=== PATIENT | male | born 1980 | race Caucasian/White ===

== ENCOUNTER 2021-03-18 18:38 | Outpatient (REF) | payer MEDICAID, SELFPAY ==
[2021-03-18 21:23] LABS: HCT 40.5 % (40.0-50.0); HGB 13.3 g/dL (13.5-17.5); MCH 29.8 pg (27.0-33.0); MCHC 32.8 % (32.0-36.0); MCV 90.6 fL (80-95); MPV 12.4 fL (8.0-11.0); Platelet Count 120 10^3/uL (130-400); RBC 4.47 10^6/uL (4.36-5.78); RDW 12.5 % (11.8-14.1); RDW-SD 41.2 fL; WBC 5.49 10^3/uL (4.4-10.8)
[2021-03-18 21:48] LABS: TSH (W/Ref FT4) 0.72 uIU/mL (0.36-3.74)
== END 2021-03-18 18:39 | disposition home or self-care (01) ==
LOC: NCHCN 18:38
PROVIDERS: PCP Registered Nurse; Visit Provider Registered Nurse
DX: R53.83 Other fatigue (principal)
CPT/HCPCS: 85027; 84443

== ENCOUNTER 2021-04-10 08:53 | Outpatient (REF) | payer MEDICAID, SELFPAY ==
[2021-04-10 14:25] LABS: Abs Immature Grans 0.01 10^3/uL (0.0-0.06); Absolute Basophil Count 0.02 10^3/uL (0.0-0.2); Absolute Eosinophil Count 0.15 10^3/uL (0.0-0.7); Absolute Monocyte Count 0.44 10^3/uL (0.1-0.8); Absolute Neutrophil Count 2.19 10^3/uL (1.2-6.7); Basophils % 0.5; Eosinophils % 3.5; HCT 42.3 % (40.0-50.0); HGB 13.6 g/dL (13.5-17.5); Immature Grans % 0.2; Lymphocytes % 34.8; MCH 29.6 pg (27.0-33.0); MCHC 32.2 % (32.0-36.0); MCV 92.2 fL (80-95); MPV 12.6 fL (8.0-11.0); Monocytes % 10.2; Neutrophils % 50.8; Nucleated RBC 0 %; Platelet Count 115 10^3/uL (130-400); RBC 4.59 10^6/uL (4.36-5.78); RDW 12.4 % (11.8-14.1); RDW-SD 42.5 fL; Reticulocyte 0.8 % (0.5-2.4); WBC 4.31 10^3/uL (4.4-10.8)
[2021-04-10 14:49] LABS: ALT 33 U/L (16-63); AST 16 U/L (15-37); Albumin 3.9 g/dL (3.4-5.0); Alkaline Phosphatase 60 U/L (46-116); Anion Gap 6.9 mmol/L (3-11); BUN 17 mg/dL (7-18); Bilirubin, Total 0.4 mg/dL (0.2-1.0); CO2 29.1 mmol/L (21.0-32.0); CREATININE 0.9 mg/dL (0.70-1.30); Calcium 8.9 mg/dL (8.5-10.1); Chloride 108 mmol/L (98-107); Glucose 52 mg/dL (74-106); Potassium 4.1 mmol/L (3.5-5.1); Sodium 144 mmol/L (136-145); Total Protein 6.7 g/dL (6.4-8.2)
== END 2021-04-10 08:54 | disposition home or self-care (01) ==
LOC: NCHCN 08:53
PROVIDERS: PCP Registered Nurse; Visit Provider Registered Nurse
DX: D64.9 Anemia, unspecified (principal)
CPT/HCPCS: 80053; 85025; 85045

== ENCOUNTER 2022-02-19 09:31 | Outpatient (REF) | payer MEDICAID, SELFPAY ==
[2022-02-19 14:14] LABS: Absolute Basophil Count 0.03 10^3/uL (0.0-0.2); Absolute Eosinophil Count 0.11 10^3/uL (0.0-0.7); Absolute Lymphocyte Count 1.26 10^3/uL (1.2-3.4); Absolute Monocyte Count 0.45 10^3/uL (0.1-0.8); Absolute Neutrophil Count 2.55 10^3/uL (1.2-6.7); Basophils % 0.7; Eosinophils % 2.5; HCT 45.8 % (40.0-50.0); HGB 14.7 g/dL (13.5-17.5); Lymphocytes % 28.6; MCH 29.8 pg (27.0-33.0); MCHC 32.1 % (32.0-36.0); MCV 93 fL (80-95); MPV 12.9 fL (8.0-11.0); Monocytes % 10.2; Platelet Count 153 10^3/uL (130-400); RBC 4.93 10^6/uL (4.36-5.78); RDW 12.7 % (11.8-14.1); RDW-SD 43.4 fL
[2022-02-19 15:00] LABS: Ferritin 84 ng/mL (26-388); TSH 1.02 uIU/mL (0.36-3.74); Vitamin B12 432 pg/mL (193-986)
== END 2022-02-19 09:32 | disposition home or self-care (01) ==
LOC: NCHCN 09:31
PROVIDERS: PCP Registered Nurse; Visit Provider Registered Nurse
DX: R53.83 Other fatigue (principal); E53.8 Deficiency of other specified B group vitamins; G47.61 Periodic limb movement disorder; Z86.2 Personal history of diseases of the blood and blood-forming organs and certain disorders involving the immune mechanism
CPT/HCPCS: 82607; 82728; 84443; 85025

== ENCOUNTER 2022-08-04 16:15 | Outpatient (REF) | payer MEDICAID, SELFPAY ==
[2022-08-05 22:33] LABS: Campylobacter PCR Negative (Negative); Salmonella PCR Negative (Negative); Shiga Toxin PCR Negative (Negative); Shigella/Enteroinvasive Ecoli Negative (Negative)
== END 2022-08-04 16:16 | disposition home or self-care (01) ==
LOC: NCHCN 16:15
PROVIDERS: PCP Registered Nurse; Visit Provider Family Medicine
DX: R19.7 Diarrhea, unspecified (principal)
CPT/HCPCS: 87329; 87505; 87177

== ENCOUNTER 2023-08-17 09:19 | Outpatient (REF) | payer BC, SELFPAY ==
--- OUTSIDE RECORDS SUMMARY | 2023-08-17 09:20 | XMS_ITS | CCD ---
Author Name Unknown Address [address] [place] [address] [phone] Organization Unknown Address [address] [place] [address] [phone] Care Team Providers Care Machine Captain Name Role Phone MARY AZEVEDO Attending Physician [phone] KATE LAYNE Er Physician [phone] LINDSEY Strong Registered Nurse [phone] Vital Signs Vital Sign Value Unit Date/Time Recent/Initial ? BMI (Body Mass Index) 22.53 kg/m^2 02/20/2023 20: 24 Initial VS Weight Measured 190 lbs 02/20/2023 20:24 Ini tial VS Height 77 in 02/20/2023 20:24 Initial VS BSA (Body Surface Area) 2.16 m^2 02/20/2023 2 0:24 Initial VS BP Systolic 135 mmHg 02/20/2023 20:24 Initial VS BP Diastolic 96 mmHg 02/20/2023 20:24 Initia l VS Respiratory Rate 16 bpm 02/20/2023 20:24 In itial VS Heart Rate 71 bpm 02/20/2023 20:24 Initial VS O2 % BldC Oximetry 99 % 02/20/2023 20:24 Initial VS Body Temperature 37 degrees 02/20/2023 20:24 In itial VS BP Systolic 132 mmHg 02/20/2023 22:01 Most Re cent VS BP Diastolic 87 mmHg 02/20/2023 22:01 Most R ecent VS Respiratory Rate 16 bpm 02/20/2023 22:[address] Recent VS Heart Rate 61 bpm 02/20/2023 22:01 Most Rec ent VS O2 % BldC Oximetry 96 % 02/20/2023 22:01 Most Recent VS Allergies Allergy Code Allergy Type Reaction Status No Known Drug Allergies 0 No known drug allergies Active Procedures Unknown or Not Available. History of Immunizations Immunization Code Date Tdap 115 02/20/2023 Problems Unknown or Not Available. Results Unknown or Not Available. Active Medications Medications Administered During Visit Medication Dose Units Frequency Route Date/Time of Last Dose TETANUS/DIPHT/PERTUS SYR:0.5ML(BOOSTRIX) 0.5 ML X1 IM 02/21/20 23 20:56 Encounters Encounter Diagnosis Diagnosis Code Start Date Laceration without foreign body of scalp, initia l encounter [id number] 02/20/2023 Social History Smoking Status Code Start Date End Date Never smoker [id number] Patient Decision Aids Unknown or Not Available. Discharge Instructions You were admitted to [facility] on 02/20/2023 20:02 with a principal diagnosis of Laceration without foreign body of scalp, initial encounter You were discharged from [facility] on 02/20/2023 22:05 Should you have any questions prior to discharge, please contact a member of your healthcare team. If you have left the hospital and have any questions, please contact your primary care physician. Chief Complaint and Reason For Visit Chief Complaint Date of Onset HEAD INJURY Function Status Unknown or Not Available. Plan of Care Unknown or Not Available. Referral/Transition of Care Unknown or Not Available.
--- OUTSIDE RECORDS SUMMARY | 2023-08-17 09:21 | XMS_ITS | CCD ---
Author Name Unknown Address [address] [place] [address] [phone] Organization Unknown Address [address] [place] [address] [phone] Care Team Providers Care Cigar Maker Name Role Phone MERLYN MORIN Attending Physician [phone] MERLYN MORIN Rounding (Secondary) Physician [phone] Vital Signs Unknown or Not Available. Allergies Allergy Code Allergy Type Reaction Status No Known Drug Allergies 0 No known drug allergies Active Procedures Unknown or Not Available. History of Immunizations Immunization Code Date Tdap 115 02/20/2023 Problems Unknown or Not Available. Results Unknown or Not Available. Active Medications Medication Code Dose Units Frequency Route Modificatio n Start Date/Time PATIENT OR PATIENT'S FAMILY DENIES 0 1 DAILY ORAL 04/23/2019 11:06 Prescription Detail TAKE 1 ORAL DAILY Medications Administered During Visit Unknown or Not Available. Encounters Encounter Diagnosis Diagnosis Code Start Date Snoring R0683 09/24/2021 Social History Smoking Status Code Start Date End Date Never smoker [id number] Patient Decision Aids Unknown or Not Available. Discharge Instructions You were admitted to [facility] on 09/24/2021 10:05 with a principal diagnosis of Snoring You were discharged from [facility] on 09/24/2021 10:06 Should you have any questions prior to discharge, please contact a member of your healthcare team. If you have left the hospital and have any questions, please contact your primary care physician. Chief Complaint and Reason For Visit Unknown or Not Available. Function Status Unknown or Not Available. Plan of Care Unknown or Not Available. Referral/Transition of Care Unknown or Not Available.
--- OUTSIDE RECORDS SUMMARY | 2023-08-17 09:21 | XMS_ITS | CCD ---
Author Name Unknown Address [address] [place] [address] [phone] Organization Unknown Address [address] [place] [address] [phone] Care Team Providers Care Rotary Kiln Operator Name Role Phone MAYANK BEALDAYAMI Attending Physician [phone] Vital Signs Unknown or Not Available. Allergies [...] Diagnosis Diagnosis Code Start Date Snoring R0683 10/20/2021 Social History Smoking Status Code Start Date End Date Never smoker [id number] Patient Decision Aids Unknown or Not Available. Discharge Instructions You were admitted to [facility] on 10/20/2021 20:06 with a principal diagnosis of Snoring You were discharged from [facility] on 10/20/2021 20:06 Should you have any questions prior to [...]
[2023-08-17 15:39] LABS: Abs Immature Grans 0.03 10^3/uL (0.0-0.06); Absolute Basophil Count 0.04 10^3/uL (0.0-0.2); Absolute Eosinophil Count 0.06 10^3/uL (0.0-0.7); Absolute Lymphocyte Count 1.17 10^3/uL (1.2-3.4); Absolute Monocyte Count 0.46 10^3/uL (0.1-0.8); Absolute Neutrophil Count 3.91 10^3/uL (1.2-6.7); Basophils % 0.7; Eosinophils % 1.1; HCT 39.3 % (40.0-50.0); HGB 12.7 g/dL (13.5-17.5); Immature Grans % 0.5; Lymphocytes % 20.6; MCH 29.2 pg (27.0-33.0); MCHC 32.3 % (32.0-36.0); MCV 90 fL (80-95); MPV 11.4 fL (8.0-11.0); Monocytes % 8.1; Platelet Count 250 10^3/uL (130-400); RBC 4.35 10^6/uL (4.36-5.78); RDW 12.7 % (11.8-14.1); RDW-SD 42.1 fL; WBC 5.67 10^3/uL (4.4-10.8)
[2023-08-17 15:51] LABS: ALT 27 U/L (16-63); AST 16 U/L (15-37); Albumin 3.8 g/dL (3.4-5.0); Alkaline Phosphatase 56 U/L (46-116); Anion Gap 8.2 mmol/L (3-11); BUN 16 mg/dL (7-18); Bilirubin, Total 0.6 mg/dL (0.2-1.0); CO2 25.8 mmol/L (21.0-32.0); Calcium 9.6 mg/dL (8.5-10.1); Chloride 108 mmol/L (98-107); Estimated GFR 95.18 (mL/min/1.73m2); Glucose 65 mg/dL (74-106); Sodium 142 mmol/L (136-145); Total Protein 7.3 g/dL (6.4-8.2)
[2023-08-18 10:12] LABS: Lyme Ab w Rflx to Lyme Confirm Negative (Negative)
[2023-08-19 21:09] LABS: Anaplasma phagocytophilum Negative (Negative); B. miyamotoi PCR Negative (Negative); Babesia divergens/MO-1 Negative (Negative); Babesia duncani Negative (Negative); Babesia microti Negative (Negative); Ehrlichia chaffeensis Negative (Negative); Ehrlichia ewingii/canis Negative (Negative); Ehrlichia muris eauclairensis Negative (Negative)
== END 2023-08-17 09:20 | disposition home or self-care (01) ==
LOC: NCHCN 09:19
PROVIDERS: PCP Registered Nurse; Visit Provider Physician Assistant
DX: R53.83 Other fatigue (principal); R63.4 Abnormal weight loss; R61 Generalized hyperhidrosis; R50.9 Fever, unspecified
CPT/HCPCS: 80053; 87798; 85025; 86618

== ENCOUNTER 2024-05-28 21:04 | Outpatient (REF) | payer BC, SELFPAY ==
--- OUTSIDE RECORDS SUMMARY | 2024-05-28 21:08 | XMS_ITS | Encounter Summary ---
Author Organization [facility] Address [address] [place] [address] Care Team Providers Care Head Waiter/Waitress Banquet Name Role Phone Haylee Monge CHELI Primary Care Provider + Encounter Details Date Type Department Care Team (Late st Contact Info) Description 11/19/2022 Orders Only [facility] Adult Hematology & Oncology [address] [place] [address] [phone] Anay Leyva MD [address] [place] [address] Other dietary vitamin B12 deficiency anemia (Primary Dx) Social History Tobacco Use Types Packs/Day Years Used Date Smoking Tobacco: Never Smokeless Tobacco: Never Alcohol Use Standard Drinks/Week Comments Yes 1 (1 standard drink = 0.6 oz pur e alcohol) Sex and Gender Information Value Date Recorded Sex Assigned at Not on file Gender Identity Male 05/11/2021 22:42 EDT Sexual Orientation Not on file documented as of this encounter Plan of Treatment Not on file documented as of this encounter Results * FOLATE (11/19/2022 10:19 EST) Folate 17.10 >2.78 ng/mL 11/19/2022 13:56 EST [facility] Blood VENOUS BLOOD / Unknown Venipuncture / Unknown 11/19/2022 10:19 EST 11/19/2022 10:19 EST Narrative [facility] - 11/19/2022 13:56 EST The results of this assay can be falsely elevated due to the consumption of Biotin. Anay Leyva MD CHEMISTRY & BLOOD GA S ORDERABLES [facility] [address] [place] [address] * VITAMIN B12 (11/19/2022 10:19 EST) [facility] Vitamin B12 380 211 - 911 pg/mL 11/19/2022 13:56 EST [facility] Blood VENOUS BLOOD / Unknown Venipuncture / Unknown 11/19/2022 10:19 EST 11/19/2022 10:19 EST [facility] - 11/19/2022 13:56 EST The results of this assay can be falsely elevated due to the consumption of Biotin. Anay Leyva MD CHEMISTRY & BLOOD GA S ORDERABLES Performing Organization Address [facility]/ZIP Co de Phone Number [facility] [address] [place] [address] * (ABNORMAL) COMPLETE BLOOD COUNT AND DIFFERENTIAL (11/19/2022 10:19 EST) [facility] WBC 4.54 4.00 - 10.40 K/cmm 11/19/2022 11:54 [facility] HEMATOLOGY & ONCOLOGY [facility] RBC 4.72 4.36 - 5.78 M/cmm 11/19/2022 11:54 [facility] HEMATOLOGY & ONCOLOGY [facility] Hemoglobin 14.5 13.8 - 17.3 gm/dL 11/19/2022 11:54 [facility] HEMATOLOGY & ONCOLOGY [facility] HCT 42.3 % 11/19/2022 11:54 [facility] HEMATOLOGY & ONCOLOGY - [place] MCV 90 81 - 95 fl 11/19/2022 11:54 [facility] HEMATOLOGY & ONCOLOGY [facility] MCH 30.7 27.6 - 33.0 pg 11/19/2022 11:54 [facility] HEMATOLOGY & ONCOLOGY [facility] MCHC 34.3 32.8 - 36.4 gm/dL 11/19/2022 11:54 [facility] HEMATOLOGY & ONCOLOGY [facility] RDW-CV 13.1 <14.2 % 11/19/2022 11:54 [facility] HEMATOLOGY & ONCOLOGY [facility] RDW-SD 42.6 <46.0 fl 11/19/2022 11:54 EST [facility] HEMATOLOGY & ONCOLOGY [facility] PLT 181 141 - 377 K/cmm 11/19/2022 11:54 EST [facility] HEMATOLOGY & ONCOLOGY [facility] MPV 11.5 9.5 - 12.7 fl 11/19/2022 11:54 EST [facility] HEMATOLOGY & ONCOLOGY - [place] % Neutrophils 62.5 % 11/19/2022 11:54 EST [facility] HEMATOLOGY & ONCOLOGY [facility] % Lymphocytes 23.3 % 11/19/2022 11:54 EST [facility] HEMATOLOGY & ONCOLOGY [facility] % Monocytes 12.3 % 11/19/2022 11:54 EST [facility] HEMATOLOGY & ONCOLOGY [facility] % Eosinophils 1.5 % 11/19/2022 11:54 EST [facility] HEMATOLOGY & ONCOLOGY [facility] % Basophils 0.4 % 11/19/2022 11:54 EST [facility] HEMATOLOGY & ONCOLOGY [facility] % Immature Grans 11/19/19 11:54 EST [facility] HEMATOLOGY & ONCOLOGY [facility] Absolute Neutrophils 2.83 2.20 - 8.85 K/cmm 11/19/2022 11:54 EST [facility] HEMATOLOGY & ONCOLOGY [facility] Absolute Lymphocytes 1.06(L) 1.09 - 3.30 K/cmm 11/19/2022 11:54 EST [facility] HEMATOLOGY & ONCOLOGY [facility] Absolute Monocytes 0.56 0.10 - 0.80 K/cmm 11/19/2022 11:54 EST [facility] & ONCOLOGY [facility] Absolute Eosinophils 0.07 0.03 - 0.61 K/cmm 11/19/2022 11:54 EST [facility] HEMATOLOGY & ONCOLOGY [facility] ABS Basophils 0.02 0.01 - 0.11 K/cmm 11/19/2022 11:54 EST [facility] HEMATOLOGY & ONCOLOGY [facility] Absolute Immature Grans 11/19/2022 11:54 EST [facility] HEMATOLOGY & ONCOLOGY [facility] Type of Differential: Auto 11/19/2022 11:54 EST [facility] HEMATOLOGY & ONCOLOGY [facility] Blood VENOUS BLOOD / Unknown Venipuncture / Unknown 11/19/2022 10:19 EST 11/19/2022 10:19 EST Anay Leyva MD PACKAGES & DNA PROBE ORDERABLES [facility] HEMATOLOGY & ONCOLOGY [facility] Medical [address] [place] [address], [place] * COMPREHENSIVE METABOLIC PANEL (CMP) (11/19/2022 10:19 [facility]) Sodium 143 136 - 145 mmol/L 11/19/2022 12:52 [facility] Potassium 4.7 3.5 - 5.0 mmol/L 11/19/2022 12:52 [facility] Chloride 107 96 - 110 mmol/L 11/19/2022 12:52 [facility] CO2 Total 29 22 - 32 mmol/L 11/19/2022 12:52 [facility] Glucose 82 70 - 100 mg/dL 11/19/2022 12:52 [facility] BUN 14 10 - 26 mg/dL 11/19/2022 12:52 [facility] Creatinine 0.71 0.66 - 1.25 mg/dL 11/19/2022 12:52 [facility] eGFR 116 >60 mL/min/1.7 3m2 11/19/2022 12:52 [facility] Total Protein 7.1 6.3 - 8.2 g/dL 11/19/2022 12:52 [facility] Comment:The sample was colle cted in a [place] Heparin anticoagulated tube. An average positive bias of 6% with an individual sample bias up to 10% may be observed with heparin plasma results compared to serum results. Albumin 4.6 3.4 - 4.9 g/dL 11/19/2022 12:52 [facility] Alkaline Phosphatase 55 38 - 126 U/L 11/19/2022 12:52 [facility] AST 25 15 - 46 U/L 11/19/2022 12:52 [facility] ALT 20 <50 U/L 11/19/2022 12:52 [facility] Bilirubin, Total 0.5 <1.4 mg/dL 11/19/19 23 12:52 [facility] Calcium 9.4 8.5 - 10.5 mg/dL 11/19/2022 12:52 [facility] Albumin/Globulin Ratio 1.8 1.0 - 2.5 11/19/2022 12:52 EST [facility] Anion Gap 7 5 - 14 11/19/2022 12:52 EST [facility] Blood VENOUS BLOOD / Unknown Venipuncture / Unknown 11/19/2022 10:19 EST 11/19/2022 10:19 EST Anay Leyva MD CHEMISTRY & BLOOD GA S ORDERABLES Performing Organization Address City/State/[facility] Co de Phone Number [facility] [address] [place] [address] documented in this encounter Visit Diagnoses Diagnosis Other dietary vitamin B12 deficiency anemia- Primary documented in this encounter Care Teams Head Waiter/Waitress Banquet Relationship Specialty Start Date End Date Haylee Monge, ORACLE DATABASE ANALYST [address] [place] [address] PCP - General 05/15/21 documented as of this encounter
--- OUTSIDE RECORDS SUMMARY | 2024-05-28 21:08 | XMS_ITS | Encounter Summary ---
Author Organization [facility] Address [address] [place] [address] Care Team Providers Care Metal Fabrication Supervisor Name Role Phone Haylee Monge CHELI Primary Care Provider + Encounter Details Date Type Department Care Team (Late st Contact Info) Description 08/17/2023 Lab Requisition [facility] Pathology & Laboratory Medicine - [address] [phone] Outr Resulting Lab, Provider Social History Tobacco Use Types Packs/Day Years [...] on file documented as of this encounter Procedures Procedure Name Priority Date/Time Associated Diagnosis Comments LYME AB Routine 08/17/2023 7:50 EST documented in this encounter Results * LYME AB (08/17/2023 7:50 EST) Lyme Ab Negative Negative 08/18/2023 10:08 EST [facility] Blood VENOUS BLOOD / Unknown 08/17/2023 7:50 EST 08/17/2023 21:38 EST Provider Outr Resulting Lab IMMUNOLOGY A ND SEROLOGY ORDERABLES [facility] [address] [place] [address] documented in this encounter Visit Diagnoses Not on filedocumented in this encounter Care Teams Metal Fabrication Supervisor Relationship Specialty Start Date End Date Haylee Monge APRN [address] [place] [address] PCP - General 05/15/21 documented as of this encounter
--- OUTSIDE RECORDS SUMMARY | 2024-05-28 21:08 | XMS_ITS ---
Author Organization Unknown Address [address] [place] [address] [phone] Phone Care Team Providers Care Custom Marine Canvas Fabricator Name Role Phone LINDSEY MÁRQUEZ Registered Nurse Unavailable ROBERTO CARLOS Bolden Attending Unavailable ROVERTO [facility] Unavailable MARIBELL Skelton Primary Unavailable UNLISTED PROVIDER - REQUESTED Xhandoff Un available Immunization Immunization Date Status Additional Notes Code Code System Tdap 02/20/2023 Completed 115 CVX Social History Type Status Start Date End Date Code Code Syst em Smoking History Never smoker (Never Smoked) [id number] SNOMED CT Sex Male Vital Signs Vital Sign Value Unit Archuleta Value Archuleta Unit Date/Time Recent/Initial? Code Code System Body Mass Index 22.53 kg/m2 02/20/2023 20:24 Initial 83027 -5 LOINC Systolic Blood Pressure 132 mm[Hg] 02/20/2023 22:01 Most Recent 8480- 6 LOINC Diastolic Blood Pressure 87 mm[Hg] 02/20/2023 22:01 Most Recent 8462- 4 LOINC Systolic Blood Pressure 135 mm[Hg] 02/20/2023 20:24 Initial 8480- 6 LOINC Diastolic Blood Pressure 96 mm[Hg] 02/20/2023 20:24 Initial 8462- 4 LOINC Body Surface Area 2.16 m2 02/20/2023 20:24 Initial 3140- 1 LOINC Height 195.580 0 cm 77.00 in 02/20/2023 20:24 Initial 8302- 2 LOINC O2 Saturation 96 % 2022 22:01 Most Recent 08076 -5 LOINC O2 Saturation 99 % 2022 20:24 Initial 91290 -5 LOINC Pulse 61.0 /min 02/20/2023 22:01 Most Recent 8867- 4 LOINC Pulse 71.0 /min 02/20/2023 20:24 Initial 8867- 4 LOINC Respiration 16 /min 02/21/20 23 22:01 Most Recent 9279- 1 LOINC Respiration 16 /min 02/21/20 23 20:24 Initial 9279- 1 LOINC Temperature 37.0 Tammi 98.6 F 02/21/20 20:24 Initial 8310- 5 LOINC Weight 86.18 kg 190.00 lbs 02/20/2023 20:24 Initial 43834 -7 LOINC Medications Medication Start Date End Date Route Frequency Dose Code Code System Medication Instructions Home Meds PATIENT OR PATIENT'S FAMILY DENIES 04/23/2019 Unknown ORAL DAILY 1 RxNorm TAKE 1 ORAL DAILY Hospital Discharge Instructions Should you have any questions prior to discharge, please contact a member of your healthcare team. If you have left the hospital and have any questions, please contact your primary care physician. Reason For Referral No Data Found Allergies and Adverse Reactions Allergy Substance Reaction Severity Start Date Concern Status Co de Code System No Known Drug Allergies Active 710442645 SNOMED-CT Plan of Treatment No Data Found Encounters Encounter Diagnosis Start Date Code Code Sys tem Laceration without foreign b iveth of scalp, initial encounter 02/20/2023 SNOMED-CT Personal Care Team Section Performer Name Performer Role Active Date Inactive Da sugar
--- OUTSIDE RECORDS SUMMARY | 2024-05-28 21:08 | XMS_ITS ---
Author Organization Unknown Address [address] [place] [address] [phone] Phone Care Team Providers Care Manager Advanced Name Role Phone COLTEN Pinedo Attending Unavailable Immunization Immunization Date Status Additional Notes Code Code System Tdap 02/20/2023 Completed 115 CVX Social History Type Status Start Date End Date Code Code Syst em Smoking History Never smoker (Never Smoked) 781180927 SNOMED CT Sex Male Medications Medication Start Date End Date Route [...] Code System No Known Drug Allergies Active 416025547 SNOMED-CT Plan of Treatment No Data Found Encounters Encounter Diagnosis Start Date Code Code Sys tem Other bursitis of knee, right knee 11/21/2023 SNOMED-CT Personal Care Team Section Performer Name Performer Role Active Date Inactive Da te
--- OUTSIDE RECORDS SUMMARY | 2024-05-28 21:08 | XMS_ITS | Referral Summary ---
Author Organization [facility] Address [address] [place] [address] Care Team Providers Care Fish Roe Processor Name Role Phone Haylee Monge CHELI Primary Care Provider + Allergies No known active allergies Medications Medication Sig Dispensed Refills Start Date End Date Status cyanocobalamin (VITAMIN B-12) 1,000 mcg tablet Take 1 Tablet by mouth daily. 30 Tablet 4 06/03/2021 Active Additional Information Patient not taking.Reported on 11/19/2022 Active Problems Problem Noted Date Diagnosed Date Anemia 05/01/2021 Sleep disturbance 05/01/2021 Snoring 05/01/2021 Malaise and fatigue 05/01/2021 Immunizations Name Administration Dates Next Due Covid-19 mRNA Vaccine (MODER NA COVID-19) PF 0.5 ml IM (12 yrs+) 03/09/2021,02/08/2021 Tdap Vaccine =>7YO IM 05/10/2018 Social History Tobacco Use Types Packs/Day Years Used Date Smoking Tobacco: Never Smokeless Tobacco: Never Alcohol Use Standard Drinks/Week Comments Yes 1 (1 standard drink = 0.6 oz pur e alcohol) Sex and Gender Information Value Date Recorded Sex Assigned at Not on file Gender Identity Male 05/11/2021 22:42 EDT Sexual Orientation Not on file Last Filed Vital Signs Vital Sign Reading Time Taken Comments Blood Pressure 102/78 11/19/2022 1009 EST Pulse 58 11/19/2022 1009 EST Temperature - - Respiratory Rate - - Oxygen Saturation 98% 11/19/2022 1009 EST Inhaled Oxygen Concentration - - Weight 86.6 kg (191 lb) 11/19/2022 1009 EST Height - - Body Mass Index - - Plan of Treatment Not on file Care Teams Fish Roe Processor Relationship Specialty Start Date End Date Haylee Monge APRN [address] [place] [address] PCP - General 05/15/21
--- OUTSIDE RECORDS SUMMARY | 2024-05-28 21:08 | XMS_ITS ---
Author Organization Unknown Address [address] [place] [address] [phone] Phone Care Team Providers Care Butadiene Converter Helper Name Role Phone PATIENCE MERLYN Yuan Attending Unavailable MARIBELL Skelton Primary Unavailable Immunization Immunization Date Status Additional Notes Code Code System Tdap 02/20/2023 Completed 115 CVX Social History Type Status Start Date End Date Code Code Syst em Smoking History Never smoker (Never Smoked) 922555404 SNOMED CT Sex Male Medications Medication Start [...] Code System No Known Drug Allergies Active 708084781 SNOMED-CT Plan of Treatment No Data Found Encounters Encounter Diagnosis Start Date Code Code Sys tem Person consulting for explan ation of examination or test findings 11/05/2021 SNOMED-CT Personal Care Team Section Performer Name Performer Role Active Date Inactive Da te
--- OUTSIDE RECORDS SUMMARY | 2024-05-28 21:08 | XMS_ITS | Clinical Summary ---
Author Organization [facility] Address [address] [place] [address] Care Team Providers Care Nursing Department Chairperson Name Role Phone Haylee Monge CHELI Primary [...] yrs+) 03/09/2021,02/08/2021 Tdap Vaccine =>7YO IM 05/10/2018 Medical History Medical History Date Comments Anemia 05/01/2021 Sleep disturbance 05/01/2021 Snoring 05/01/2021 Malaise and fatigue 05/01/2021 Family History Relation Status Comments Brother Alive Father Alive Maternal Aunt Alive Maternal Uncle Alive Mother Alive Sister Alive Social History Tobacco Use Types Packs/Day Years Used Date Smoking Tobacco: Never Smokeless Tobacco: Never Alcohol Use Standard Drinks/Week Comments Yes 1 (1 standard drink = 0.6 oz pur e alcohol) Sex and Gender Information Value Date Recorded Sex Assigned at Not on file Gender Identity Male 05/11/2021 22:42 EDT Sexual Orientation Not on file Obstetrics History Last Filed Vital Signs Vital Sign Reading Time Taken Comments Blood Pressure 102/78 11/19/2022 1009 EST Pulse 58 11/19/2022 1009 EST Temperature - - Respiratory Rate - - Oxygen Saturation 98% 11/19/2022 1009 EST Inhaled Oxygen Concentration - - Weight 86.6 kg (191 lb) 11/19/2022 1009 EST Height - - Body Mass Index - - Plan of Treatment Health Maintenance Due Date Last Done Comments Hepatitis C Screen 1978 Hepatitis B Vaccine (1 of 3 - 19+ 3-dose series) 1997 COVID-19 Vaccine (2022-24 season) 2023, 02/08/2021 Care Teams Nursing Department Chairperson Relationship Specialty Start Date End Date Haylee Monge, CHELI [address] [facility] [place] [phone] PCP - General 05/15/21
--- OUTSIDE RECORDS SUMMARY | 2024-05-28 21:08 | XMS_ITS ---
Author Organization Unknown Address [address] [place] [address] [phone] Phone Care Team Providers Care Mother'S Helper Name Role Phone LIAN RUSHING Attending Unavail giacomo Skelton Primary Unavailable Immunization Immunization Date Status Additional Notes Code Code System Tdap 02/20/2023 Completed 115 CVX Social History Type Status Start Date End Date Code Code Syst em Smoking History Never smoker (Never Smoked) 107590001 SNOMED CT Sex Male Medications Medication Start [...] Code System No Known Drug Allergies Active 540343517 SNOMED-CT Plan of Treatment No Data Found Encounters Encounter Diagnosis Start Date Code Code Sys tem Snoring 10/20/2021 SNOMED-CT Personal Care Team Section Performer Name Performer Role Active Date Inactive Da te
--- OUTSIDE RECORDS SUMMARY | 2024-05-28 21:08 | XMS_ITS ---
Author Organization Unknown Address [address] [place] [address] [phone] Phone Care Team Providers Care Automatic Buffing Wheel Former Name Role Phone PATIENCE MERLYN Bolden Attending Unavailable MARIBELL Skelton Primary Unavailable Immunization Immunization Date Status Additional Notes Code Code System Tdap 02/20/2023 Completed 115 CVX Social History Type Status Start Date End Date Code Code Syst em Smoking History Never smoker (Never Smoked) 285799512 SNOMED CT Sex Male Medications Medication Start [...] Code System No Known Drug Allergies Active 916652538 SNOMED-CT Plan of Treatment No Data Found Encounters Encounter Diagnosis Start Date Code Code Sys tem Snoring 09/24/2021 SNOMED-CT Personal Care Team Section Performer Name Performer Role Active Date Inactive Da te
--- OUTSIDE RECORDS SUMMARY | 2024-05-28 21:09 | XMS_ITS | Encounter Summary ---
Author Organization [facility] Address [address] [place] [address] Care Team Providers Care Power Tong Operator Name Role Phone MongeHaylee padilla Nafisa BOWER Primary Care Provider + Encounter Details Date Type Department Care Team (Late st Contact Info) Description 08/05/2022 Lab Requisition [facility] Pathology & Laboratory Medicine - [address] [id number] Outr Resulting Lab, Provider Social History Tobacco [...] Procedure Name Priority Date/Time Associated Diagnosis Comments FECAL BACTERIAL PATHOGENS BY PCR Routine 08/04/2022 7:45 EDT GIARDIA AND CRYPTOSPORIDIUM ANTIGENS Routine 08/04/2022 7:45 EDT OVA/PARASITE EXAM Routine 08/04/2022 7:4 5 EDT documented in this encounter Results * GIARDIA AND CRYPTOSPORIDIUM ANTIGENS (08/04/2022 7:45 EDT) Giardia and Cryptosporidium Cryptosporidium Antigen Neg and Giardia Antigen Neg Cryptosporidium Antigen Neg and Giardia Antigen Neg 9:58 EDT [facility] Feces SPECIMEN FROM RECTUM / Unknown 08/04/2022 7:45 EDT 08/05/2022 17:50 EDT Provider Outr Resulting Lab MICROBIOLOGY - GENERAL ORDERABLES Performing Organization Address City/[facility]/ZIP Co de Phone Number [facility] [address] [place] [address] * FECAL BACTERIAL PATHOGENS BY PCR (08/04/2022 7:45 EDT) Salmonella PCR Negative Negative 08/05/2022 22:28 EDT [facility] Shigella/Enteroin vasive E. coli Negative Negative 08/05/2022 22:28 EDT [facility] HN LAB CAMPYLOBACTER PCR Negative Negative 08/05/2022 22:28 EDT [facility] Shiga Toxin PCR Negative Negative 22:28 EDT [facility] Feces SPECIMEN FROM RECTUM / Unknown 08/04/2022 7:45 EDT 08/05/2022 17:50 EDT Provider Outr Resulting Lab MICROBIOLOGY - GENERAL ORDERABLES Performing Organization Address [facility] Co de Phone Number [facility] [address] [place] [address] * OVA/PARASITE EXAM (08/04/2022 7:45 EDT) Parasite No ova and parasites seen. 08/06/2022 10:43 EDT [facility] Feces SPECIMEN FROM RECTUM / Unknown 08/04/2022 7:45 EDT 08/05/2022 17:50 EDT Narrative [facility] - 08/06/2022 10:43 EDT (If Cryptosporidium, Cyclospora, or Microsporidium are suspected, specific tests must be requested.) Single negative specimen does not rule out the possibility of a parasitic infection. Provider Outr Resulting Lab MICROBIOLOGY - GENERAL ORDERABLES Performing Organization Address City/[facility]/ZIP Co de Phone Number [facility] [address] [place] [phone] documented in this encounter Visit Diagnoses Not on filedocumented in this encounter Care Teams Power Tong Operator Relationship Specialty Start Date End Date Haylee Monge APRN [address] [place] [phone] PCP - General 05/15/21 documented as of this encounter
--- OUTSIDE RECORDS SUMMARY | 2024-05-28 21:09 | XMS_ITS | Encounter Summary ---
Author Organization [facility] Address [address] [place] [address] Care Team Providers Care Sales Exec Name Role Phone Unavailable Primary Care Provider Unavailabl e Reason for Visit * Reason Onset Date Comments Pre-visit Planning 05/01/2021 Preload Encounter Details Date Type Department Care Team (Late st Contact Info) Description 05/01/2021 Telephone [facility] Adult Hematology & Oncology [address] [place] [phone] Carrie Morgan MBBS [address] [place] [address] [address] [place] [phone] Pre-visit Planning (Preload) Social History Tobacco Use Types Packs/Day Years Used Date Smoking Tobacco: Never Assessed Sex and Gender Information Value Date Recorded Sex Assigned at Not on file Gender Identity Male 05/11/2021 22:42 EDT Sexual Orientation Not on file documented as of this encounter Miscellaneous Notes * Telephone Encounter - Thalia Hill MA - 05/01/2021 1614 EDT PMH, medication, allergies, Surg[facility], Immunizations reconciled with [facility] referral 05/01/21 16:22 documented in this encounter Plan of Treatment Not on file documented as of this encounter Visit Diagnoses Not on filedocumented in this encounter
--- OUTSIDE RECORDS SUMMARY | 2024-05-28 21:09 | XMS_ITS | Encounter Summary ---
Author Organization [facility] Address [address] [place] [address] Care Team Providers Care Gas Engine Operator Name Role Phone Unavailable Primary Care Provider Unavailabl e Encounter Details Date Type Department Care Team (Late st Contact Info) Description 04/22/2021 Documentation Visit [facility] Hematology & Oncology - [facility] [address] [place] [address] Candy Moreno RN [address] [place] [address] Social History Tobacco Use Types Packs/Day Years Used Date Smoking Tobacco: Never Assessed Sex and Gender Information Value Date Recorded Sex Assigned at Not on file Gender Identity Male 05/11/2021 22:42 EDT Sexual Orientation Not on file documented as of this encounter Progress Notes * Candy Moreno, CONCEPCIÓN - 04/22/2021 1054 EDT Pt referred for anemia Hg of 13 needs iron studies and will see if pt can go to [facility] at this time. documented in this encounter Plan of Treatment Not on file documented as of this encounter Visit Diagnoses Not on filedocumented in this encounter
--- OUTSIDE RECORDS SUMMARY | 2024-05-28 21:09 | XMS_ITS | Encounter Summary ---
Author Organization [facility] Address [address] [place] [address] Care Team Providers Care Stock Letterer Name Role Phone Haylee Monge CHELI Primary Care Provider + Reason for Visit * Reason Onset Date Comments Other 05/27/2021 STOOL CARD RESUL TS. Encounter Details Date Type Department Care Team (Late st Contact Info) Description 05/27/2021 Telephone [facility] Adult Hematology & Oncology [address] [place] [address] Rocio Suero RN Other (STOOL CARD RESULTS.) Social History Tobacco Use Types Packs/Day Years [...] encounter Miscellaneous Notes * Telephone Encounter - Rocio Suero RN - 05/27/2021 1013 EDT Pt. Returned phone call. Notified of results. Confirmed f/u appt. W/ pt. On 06/03/2021. * Telephone Encounter - Rocio Suero RN - 05/27/2021 1006 EDT LMTCB 05/27/2021 * Telephone Encounter - Rocio Suero RN - 05/27/2021 1005 EDT ----- Message from LATASHA Jerome sent at 05/27/2021 8:16 EDT ----- Please let the patient know that stool occult blood test is negative. LATASHA Jerome documented in this encounter Plan of Treatment Not on file documented as of this encounter Visit Diagnoses Not on filedocumented in this encounter Care Teams Stock Letterer Relationship Specialty Start Date End Date Haylee Monge APRN [address] [place] [phone] PCP - General 05/15/21 documented as of this encounter
--- OUTSIDE RECORDS SUMMARY | 2024-05-28 21:09 | XMS_ITS | Encounter Summary ---
Author Organization [facility] Address [address] [place] [address] Care Team Providers Care Desktop Support Technician Name Role Phone Unavailable Primary Care Provider Unavailabl e Encounter Details Date Type Department Care Team (Late st Contact Info) Description 10/26/2002 23:09 [facility] Hospital Encounter [facility] - Other [address] [place] [address] Montana Redman MD [address] [place] [address] [place] [address] Unknown, MD Karon Social History Tobacco Use Types Packs/Day Years [...]
--- OUTSIDE RECORDS SUMMARY | 2024-05-28 21:09 | XMS_ITS | Encounter Summary ---
Author Organization [facility] Address [address] [place] [address] Care Team Providers Care Searchlight Operator Name Role Phone Haylee Monge CHELI Primary Care Provider + Reason for Visit * Reason Comments Follow-up Encounter Details Date Type Department Care Team (Late st Contact Info) Description 11/19/2022 10:00 EST Office Visit [facility] Adult Hematology & Oncology [address] [place] [phone] Anay Leyva MD [address] [place] [phone] Other dietary vitamin B12 deficiency [...] on file documented as of this encounter Last Filed Vital Signs Vital Sign Reading Time Taken Comments Blood Pressure 102/78 11/19/2022 1009 EST Pulse 58 11/19/2022 1009 EST Temperature - - Respiratory Rate - - Oxygen Saturation 98% 11/19/2022 1009 EST Inhaled Oxygen Concentration - - Weight 86.6 kg (191 lb) 11/19/2022 1009 EST Height - - Body Mass Index - - documented in this encounter Progress Notes * Anay Leyva MD - 11/19/2022 1000 EST 11/19/2022 FOLLOW-UP PATIENT: Reg Hurtado CHIEF COMPLAINT Follow-up Fatigue HISTORY OF PRESENT ILLNESS Reg Hurtado is a very pleasant 42 y.o. male who presents with chronic fatigue syndrome. He was seen in the clinic in the past for borderline anemia. In the interim he had sleep studies done and he states he was diagnosed with restless leg syndrome and ,imb movement disorder. He was given Gabapentin for it but after a month he stopped taking it. He is here for follow up visit. PROBLEM LIST Patient Active Problem List Diagnosis ??? Anemia ??? Sleep disturbance ??? Snoring ??? Malaise and fatigue MEDICAL HISTORY Patient has a past medical history of Anemia (05/01/2021), Malaise and fatigue (05/01/2021), Sleep disturbance (05/01/2021), and Snoring (05/01/2021). SURGICAL HISTORY Patient has no past surgical history on file. MEDICATIONS Patient has a current medication list which includes the following prescription(s): cyanocobalamin. ALLERGIES Patient has No Known Allergies. FAMILY HISTORY Patient's family history is not on file. SOCIAL HISTORY Patient reports that he has never smoked. He has never used smokeless tobacco. He reports current alcohol use of about 1.0 standard drink per week. REVIEW OF SYSTEMS: Constitutional: Positive for fatigue. HENT: Negative. Eyes: Negative. Respiratory: Negative. Cardiovascular: Negative. Gastrointestinal: Negative. Endocrine: Negative. Genitourinary: Negative. Musculoskeletal: Negative. Skin: Negative. Allergic/Immunologic: Negative. Neurological: Negative. Hematological: Negative. Psychiatric/Behavioral: Negative. DIAGNOSTIC DATA Results for orders placed or performed in visit on 08/04/22 OVA/PARASITE EXAM Specimen: Rectum; Feces Result Value Ref Range Parasite No ova and parasites seen. FECAL BACTERIAL PATHOGENS BY PCR Specimen: Rectum; Feces Result Value Ref Range Salmonella PCR Negative Negative Shigella/Enteroinvasive E. coli Negative Negative [facility] LAB CAMPYLOBACTER PCR Negative Negative Shiga Toxin PCR Negative Negative GIARDIA AND CRYPTOSPORIDIUM ANTIGENS Specimen: Rectum; Feces Result Value Ref Range Giardia and Cryptosporidium Cryptosporidium Antigen Neg and Giardia Antigen Neg Cryptosporidium Antigen Neg and Giardia Antigen Neg VITALS weight is 86.6 kg (191 lb). His blood pressure is 102/78 and his pulse is 58. His oxygen saturationis 98%. ECOG Performance Status: 0- PHYSICAL EXAM Not performed IMAGING None recent DIAGNOSIS The encounter diagnosis was Other dietary vitamin B12 deficiency anemia. STAGING Cancer Staging No matching staging information was found for the patient. ASSESSMENT 42 years old with chronic fatigue syndrome. His labs are normal and his fatigue is not attributed to anemia. His B12 and Folic acid are pending. He did get diagnosed with restless leg syndrome. He stopped talking Gabapentin too soon. I did encourage him to discuss again with his PCP or perhaps consider Requip. He does not need additional hematology work up and follow up. He will return to his PCPfor age appropriate screening. PLAN Diagnoses and all orders for this visit: Other dietary vitamin B12 deficiency anemia - COMPREHENSIVE METABOLIC PANEL (CMP) - COMPLETE BLOOD COUNT AND DIFFERENTIAL - VITAMIN B12 - FOLATE Anay Leyva MD I spent 20 minutes reviewing medical records, labs and ordering labs and treatment today * David Nassar RN - 11/19/2022 1000 EST Procedures: - Venipuncture Performed by: DAVID NASSAR RN Site Collected: Right Antecubital Space Volume Withdrawn: LAV EDTA 3.0 mL and [place] SST 8.5 mL Patient Response:Patient tolerated venipuncture well Number of attempts: 2 Ordering Provider: Anay Leyva MD documented in this encounter Plan of Treatment Not on file documented as of this encounter Procedures Procedure Name Priority Date/Time Associated Diagnosis Comments COMPLETE BLOOD COUNT AND DIFFERENTIAL STAT 11/19/2022 10:19 EST Other dietary vitamin B12 deficiency anemia FOLATE Routine 11/19/2022 10:19 EST Other dietary vitamin B12 deficiency anemia VITAMIN B12 Routine 11/19/2022 10:19 EST Other dietary vitamin B12 deficiency anemia COMPREHENSIVE METABOLIC PANEL (CMP) STAT 11/19/2022 10:19 EST Other dietary vitamin B12 deficiency anemia documented in this encounter Results * FOLATE (11/19/2022 10:19 EST) Folate 17.10 >2.78 ng/mL 11/19/2022 13:56 EST [facility] Blood VENOUS BLOOD / Unknown Venipuncture / Unknown 11/19/2022 10:19 EST 11/19/2022 10:19 EST [facility] - 11/19/2022 13:56 EST The results of this assay can be falsely elevated due to the consumption of Biotin. Anay Leyva MD CHEMISTRY & BLOOD GA S ORDERABLES Performing Organization Address [facility] Co de Phone Number [facility] [address] [place] [address] * VITAMIN B12 (11/19/2022 10:19 EST) Vitamin B12 380 211 - 911 pg/mL 11/19/2022 13:56 EST [facility] Blood VENOUS BLOOD / Unknown Venipuncture / Unknown 11/19/2022 10:19 EST 11/19/2022 10:19 EST Narrative [facility] - 11/19/2022 13:56 EST The results of this assay can be falsely elevated due to the consumption of Biotin. Anay Leyva MD CHEMISTRY & BLOOD GA S ORDERABLES Performing Organization Address [facility] Number [facility] [address] [place] [address] * (ABNORMAL) COMPLETE BLOOD COUNT AND DIFFERENTIAL (11/19/2022 10:19 EST) WBC 4.54 4.00 - 10.40 K/cmm 11/19/2022 11:54 EST [facility] RBC 4.72 4.36 - 5.78 M/cmm 11/19/2022 11:54 [facility] Hemoglobin 14.5 13.8 - 17.3 gm/dL 11/19/2022 11:54 [facility] HCT 42.3 % 11/19/2022 11:54 [facility] MCV 90 81 - 95 fl 11/19/2022 11:54 [facility] MCH 30.7 27.6 - 33.0 pg 11/19/2022 11:54 [facility] MCHC 34.3 32.8 - 36.4 gm/dL 11/19/2022 11:54 [facility] RDW-CV 13.1 <14.2 % 11/19/2022 11:54 [facility] RDW-SD 42.6 <46.0 fl 11/19/2022 11:54 [facility] PLT 181 141 - 377 K/cmm 11/19/2022 11:54 [facility] MPV 11.5 9.5 - 12.7 fl 11/19/2022 11:54 [facility] % Neutrophils 62.5 % 11/19/2022 11:54 [facility] % Lymphocytes 23.3 % 11/19/2022 11:54 [facility] % Monocytes 12.3 % 11/19/2022 11:54 [facility] % Eosinophils 1.5 % 11/19/2022 11:54 [facility] % Basophils 0.4 % 11/19/2022 11:54 [facility] % Immature Grans 11/19/19 11:54 [facility] Absolute Neutrophils 2.83 2.20 - 8.85 K/cmm 11/19/2022 11:54 [facility] Absolute Lymphocytes 1.06(L) 1.09 - 3.30 K/cmm 11/19/2022 11:54 [facility] Absolute Monocytes 0.56 0.10 - 0.80 K/cmm 11/19/2022 11:54 [facility] Absolute Eosinophils 0.07 0.03 - 0.61 K/cmm 11/19/2022 11:54 [facility] ABS Basophils 0.02 0.01 - 0.11 K/cmm 11/19/2022 11:54 [facility] Absolute Immature Grans 11/19/2022 11:54 [facility] Type of Differential: Auto 11/19/2022 11:54 EST [facility] Blood VENOUS BLOOD / Unknown Venipuncture / Unknown 11/19/2022 10:19 EST 11/19/2022 10:19 EST Anay Leyva MD PACKAGES & DNA PROBE ORDERABLES [facility] Medical Office [address], [address] [place] [address] * COMPREHENSIVE METABOLIC PANEL (CMP) (11/19/2022 10:19 EST) Sodium 143 136 - 145 mmol/L 11/19/2022 12:52 [facility] Potassium 4.7 3.5 - 5.0 mmol/L 11/19/2022 12:52 [facility] Chloride 107 96 - 110 mmol/L 11/19/2022 12:52 [facility] CO2 Total 29 22 - 32 mmol/L 11/19/2022 12:52 [facility] Glucose 82 70 - 100 mg/dL 11/19/2022 12:52 [facility] BUN 14 10 - 26 mg/dL 11/19/2022 12:52 [facility] Creatinine 0.71 0.66 - 1.25 mg/dL 11/19/2022 12:52 [facility] eGFR 116 >60 mL/min/1.7 3m2 11/19/2022 12:52 [facility] Total Protein 7.1 6.3 - 8.2 g/dL 11/19/2022 12:52 [facility] Comment:The sample was colle cted in a [place] Heparin anticoagulated tube. An average positive bias of 6% with an individual sample bias up to 10% may be observed with heparin plasma results compared to serum results. Albumin 4.6 3.4 - 4.9 g/dL 11/19/2022 12:52 [facility] Alkaline Phosphatase 55 38 - 126 U/L 11/19/2022 12:52 [facility] AST 25 15 - 46 U/L 11/19/2022 12:52 [facility] ALT 20 <50 U/L 11/19/2022 12:52 [facility] Bilirubin, Total 0.5 <1.4 mg/dL 11/19/19 23 12:52 [facility] Calcium 9.4 8.5 - 10.5 mg/dL 11/19/2022 12:52 [facility] Albumin/Globulin Ratio 1.8 1.0 - 2.5 11/19/2022 12:52 [facility] Anion Gap 7 5 - 14 11/19/2022 12:52 [facility] Blood VENOUS BLOOD / Unknown Venipuncture / Unknown 11/19/2022 10:19 EST 11/19/2022 10:19 EST Anay Leyva MD CHEMISTRY & BLOOD GA S ORDERABLES Performing Organization Address City/State/[facility] Co de Phone Number [facility] [address] [place] [address] documented in this encounter Visit Diagnoses Diagnosis Other dietary vitamin B12 deficiency anemia- Primary documented in this encounter Care Teams Searchlight Operator Relationship Specialty Start Date End Date Haylee Monge, MENTAL HEALTH TECH [address] [place] [phone] PCP - General 05/15/21 documented as of this encounter
--- OUTSIDE RECORDS SUMMARY | 2024-05-28 21:09 | XMS_ITS | Encounter Summary ---
Author Organization [facility] Address [address] [place] [address] Care Team Providers Care Girls Tennis Coach Name Role Phone Unavailable Primary Care Provider Unavailabl e Encounter Details Date Type Department Care Team (Late st Contact Info) Description 10/26/2002 Results Only [facility] [address] [place] [address] Montana Redman MD [address] [place] [address] [place], [place] [phone] Social History Tobacco Use Types Packs/Day Years [...] Date/Time Associated Diagnosis Comments COMPLETE BLOOD COUNT Routine 10/26/2002 17:00 EST AMYLASE Routine 10/26/2002 17:00 EST documented in this encounter Results * (ABNORMAL) HEMAGRAM (10/26/2002 17:00 EST) WBC 8.83 4.0 - 10.4 K/cmm [facility] RBC 4.91 4.36 - 5.78 M/cmm [facility] Hemoglobin 15.1 13.8 - 17.3 gm/dl [facility] HCT 43.8 39.5 - 50.2 % [facility] MCV 89 81 - 95 fl [facility] MCH 30.7 27.6 - 33.0 pg [facility] MCHC 34.4 32.8 - 36.4 gm/dl [facility] PLT 136(L) 141 - 320 K/cmm [facility] RDW-CV 12.9 11.8 - 14.1 % [facility] 10/26/2002 17:0 0 EST 10/26/2002 21:21 EST Montana Redman MD HEMATOLOGY & PF4 ORD ERABLES Performing Organization Address City/[facility] de Phone Number [facility] [address] [place] [address] * (ABNORMAL) AMYLASE (10/26/2002 17:00 EST) Amylase 229(H) 30 - 110 U/L [facility] 10/26/2002 17:0 0 EST 10/26/2002 21:21 EST Montana Redman MD CHEMISTRY & BLOOD GA S ORDERABLES Performing Organization Address City/[facility] de Phone Number [facility] [address] [place] [address] documented in this encounter Visit Diagnoses Not on filedocumented in this encounter
--- OUTSIDE RECORDS SUMMARY | 2024-05-28 21:09 | XMS_ITS | Encounter Summary ---
Author Organization [facility] Address [address] [place] [address] Care Team Providers Care Assistant Purchasing Manager Name Role Phone Haylee Monge CHELI Primary Care Provider + Reason for Visit * Reason Comments Follow-up Encounter Details Date Type Department Care Team (Late st Contact Info) Description 11/20/2021 10:00 EST Office Visit [facility] Adult Hematology & Oncology [address] [place] [address] Carrie Morgan MBBS [address] [place] [address] [address] [place] [address] Malaise and fatigue (Primary Dx); Vitamin B12 deficiency Social History Tobacco Use Types Packs/Day Years [...] Sign Reading Time Taken Comments Blood Pressure 112/62 11/20/2021 0952 EST Pulse 58 11/20/2021 0952 EST Temperature - - Respiratory Rate - - Oxygen Saturation 99% 11/20/2021 0952 EST Inhaled Oxygen Concentration - - Weight 88.9 kg (196 lb) 11/20/2021 0952 EST Height - - Body Mass Index - - documented in this encounter Progress Notes * Carrie Morgan MBBS - 11/20/2021 1000 EST Hematology Follow-up Note Date of Service: 11/20/2021 Hematology History: Fatigue: ?? 03/18/2021: Hemoglobin: 13.3, MCV: 90.6, platelet count: 120,000, TSH:??0.72 ?? 04/10/2021: Hemoglobin: 13.6, hematocrit: 42.3, MCV: 92.2, MCH: 29.6, platelet count: 115,000, serum creatinine: 0.9 ?? 05/15/2021: Stool occult blood test: Negative, Serum ferritin: 47, Vitamin B12: 338, folic acid: 13.30, TSH: 0.69. Patient is taking vitamin B12, 1000 mcg daily. Subjective: I saw patient in follow-up today. He is taking vitamin B12, 1000 mcg daily. Patient mentions that he was evaluated in sleep clinic and was diagnosed with movement disorder and restless leg syndrome. Review of Systems: All 10 systems have been reviewed and are negative except for the mentioned above. Medications: Current Outpatient Medications Medication Sig Dispense Refill Last Dose ??? cyanocobalamin (VITAMIN B-12) 1,000 mcg tablet Take 1 Tablet by mouth daily. 30 Tablet 4 Taking No current facility-administered medications for this visit. Objective: VS: Patient Vitals for the past 24 hrs: BP Pulse SpO2 Weight 11/20/21 0952 112/62 58 99 % 88.9 kg (196 lb) Physical Exam: General appearance: Awake, alert, oriented x3, NAD Skin: Skin color, tempature, turgor normal Head: Normocephalic, without obvious abnormality Eyes: sclerae anicteric Neck: supple, symmetrical Social History Social History Narrative Lives in [place], [place] with and 2 boys. Shanta. Data Review: Labs: Results for orders placed or performed in visit on 05/15/21 FOLATE Result Value Ref Range FOLIC ACID - [facility] 13.30 2.76- >20.0 ng/mL VITAMIN B12 Result Value Ref Range VITAMIN B12 - [facility] 338 239 - 931 pg/mL FERRITIN Result Value Ref Range FERRITIN - [facility] 47 17.9 - 464.0 ng/mL TSH Result Value Ref Range THYROID STIM HORMONE - [facility] 0.69 0.46 - 4.68 uIU/ml CBC W/PLT & DIFF,POINT OF CARE - [facility] Result Value Ref Range ABSOLUTE NEUTROPHIL COUN - [facility] 3.1 2.2 - 8.85 10e3/uL BASO # - [facility] 0.02 0.01 - 0.11 10e/uL BASO % - [facility] 0 0 - 2 % EOS # - [facility] 0.09 0.03 - 0.61 10e3/uL EOS % - [facility] 2 0 - 5 % GRAN % - [facility] 58.4 40 - 80 % HEMATOCRIT - [facility] 40.1 39.5 - 50.2 % HEMOGLOBIN - [facility] 13.8 13.8 - 17.3 g/dl LYMPH # - [facility] 1.6 1.09 - 3.3 10e3/ul LYMPH% - [facility] 29.8 20 - 40 % MEAN CORPUSCULAR HGB - [facility] 30.7 27.6 - 33.0 pg MEAN CORPUSCULAR HGB CONC - [facility] 34.4 32.8 - 36.4 g/dl MEAN CELL VOLUME - [facility] 89.3 81 - 95 fl MONO # - [facility] 0.5 0.1 - 0.8 10e3/uL MONO% - [facility] 9.7 0 - 12 % PLATELET COUNT 142 141 - 377 10e3/ul RED BLOOD COUNT - [facility] 4.49 4.36 - 5.78 10e6/ul RED CELL DISTRI WIDTH - [facility] 12.6 <14.2 % WHITE BLOOD COUNT - [facility] 5.3 4.0 - 10.4 10e3/ul POCT OCCULT BLOOD SLIDE TEST X 3 Result Value Ref Range Developer Lot Number [id number] Developer Expiration Date 03-09-2022 Card/Slide Lot Number #1 10-28 Card/Slide Expiration Date #1 02-06-2023 Card Slide #1 Collection Date: 05/18/21 Occult Blood Test Result #1 Negative Negative Positive Control Blue? #1 Yes Negative Control Clear? #1 Card/Slide Lot Number #2 Card/Slide Expiration Date #2 Card Slide #2 Collection Date: 05/19/21 Occult Blood Test Result #2 Negative Negative Positive Control Blue? #2 Negative Control Clear? #2 Card/Slide Lot Number #3 Card/Slide Expiration Date #3 Card Slide #3 Collection Date: 05/21/21 Occult Blood Test Result #3 Negative Negative Positive Control Blue? #3 Negative Control Clear? #3 Assessment and plan: ??40 y.o.??male??with no significant past medical history who has chronic fatigue. CBC does not show anemia. Stool occult blood test is negative. Serum ferritin, TSH levels are normal. Folic acid is normal but vitamin B12 is at lower limits of normal. Patient has been taking vitamin B12, 1000 mcg daily. Fatigue could be from vitamin B12 deficiency/recently diagnosed restless leg syndrome/movementdisorder. Vitamin B12 level from today is pending. Interim, I advised the patient to continue taking vitamin B12, 1000 mcg daily. Follow-up: 1 year, in person visit Other Orders Placed This Visit Procedures ??? Vitamin B12 Requested Prescriptions No prescriptions requested or ordered in this encounter I spent a total of 25 minutes on the date of this encounter meeting with the patient and reviewing documentation/coordinating care as described in the above note. No procedures were performed at the time of the visit. Carrie Morgan MD Clinical Practice Physician Hematology/ Medical Oncology [facility] Ph no: [phone] CC: Primary Care Provider: Haylee Monge [address] [place] [phone] * Amy Rush RN - 11/20/2021 1000 EST Procedures: - Venipuncture Performed by: AMY RUSH RN Site Collected: Left Antecubital Space Volume Withdrawn: [place] SST 8.5 mL Patient Response:Patient tolerated venipuncture well Number of attempts: Collected on: 11/20/21 9:59 Ordering Provider:Carrie Morgan MD documented in this encounter Miscellaneous Notes * Result Encounter Note - Carrie Mrogan MBBS - 11/20/2021 1000 EST Please let the patient know that vitamin B12 level is normal. LATASHA Jerome documented in this encounter Plan of Treatment Not on file documented as of this encounter Procedures Procedure Name Priority Date/Time Associated Diagnosis Comments VITAMIN B12 Routine 11/20/2021 9:58 EST Malaise and fatigue documented in this encounter Results * VITAMIN B12 (11/20/2021 9:58 EST) Vitamin B12 551 211 - 911 pg/mL 11/20/2021 14:[address] [facility] Blood VENOUS BLOOD / Unknown Venipuncture / Unknown 11/20/2021 9:58 EST 11/20/2021 9:[address] [facility] - 11/20/2021 14:50 EST The results of this assay can be falsely elevated due to the consumption of Biotin. Carrie PAGAN CHEMISTRY & BLOOD GAS ORDERABLES Performing Organization Address City/State/[facility] Co de Phone Number [facility] [address] [place] [address] documented in this encounter Visit Diagnoses Diagnosis Malaise and fatigue- Primary Other malaise and fatigue Vitamin B12 deficiency Other B-complex deficiencies documented in this encounter Care Teams Assistant Purchasing Manager Relationship Specialty Start Date End Date Haylee Monge APRN [address] [place] [phone] PCP - General 05/15/21 documented as of this encounter
--- OUTSIDE RECORDS SUMMARY | 2024-05-28 21:09 | XMS_ITS | Encounter Summary ---
Author Organization [facility] Address [address] [place] [address] Care Team Providers Care Commercial Analyst Name Role Phone Haylee Monge CHELI Primary Care Provider + Reason for Visit * Reason Onset Date Comments Results 11/20/2021 Encounter Details Date Type Department Care Team (Late st Contact Info) Description 11/20/2021 Telephone [facility] [place] [address] [place] [address] Amy Mcghee RN Results Social History Tobacco Use Types Packs/Day Years [...] encounter Miscellaneous Notes * Telephone Encounter - Amy Mcghee RN - 11/20/2021 1515 EST Left detailed message informing patient that vitamin B12 levels are normal. Patient stated full name on recording. Encouraged to call office with any questions. * Telephone Encounter - Amy Mcghee RN - 11/20/2021 1513 EST ----- Message from LATASHA Jerome sent at 11/20/2021 15:08 EST ----- Please let the patient know that vitamin B12 level is normal. LATASHA Jerome documented in this encounter Plan of Treatment Not on file documented as of this encounter Visit Diagnoses Not on filedocumented in this encounter Care Teams Commercial Analyst Relationship Specialty Start Date End Date Haylee Monge, CHELI [address] [place] [phone] PCP - General 05/15/21 documented as of this encounter
--- OUTSIDE RECORDS SUMMARY | 2024-05-28 21:09 | XMS_ITS | Encounter Summary ---
Author Organization [facility] Address [address] [place] [address] Care Team Providers Care Personal Computer Specialist Name Role Phone Haylee Monge APRN Primary Care Provider + Reason for Visit * Reason Onset Date Comments Other 05/27/2021 Encounter Details Date Type Department Care Team (Late st Contact Info) Description 05/27/2021 Telephone [facility] [place] [address] [place] [address] Thalia Jo, RN Other Social History Tobacco Use Types Packs/Day Years [...] Miscellaneous Notes * Telephone Encounter - Thalia Jo RN - 05/27/2021 4628 EDT Stool cards negative x3 documented in this encounter Plan of Treatment Not on file documented as of this encounter Visit Diagnoses Not on filedocumented in this encounter Care Teams Personal Computer Specialist Relationship Specialty Start Date End Date Haylee Monge APRN [address] [place] [phone] PCP - General 05/15/21 documented as of this encounter
--- OUTSIDE RECORDS SUMMARY | 2024-05-28 21:09 | XMS_ITS | Encounter Summary ---
Author Organization [facility] Address [address] [place] [address] Care Team Providers Care Fish Seiner Name Role Phone Haylee Monge CHELI Primary Care Provider + Reason for Visit * Reason Comments Telemedicine Phone Call Encounter Details Date Type Department Care Team (Late st Contact Info) Description 06/03/2021 16:00 EDT Telemedicine [facility] [place] Adult Hematology & Oncology [address] [place] [address] Carrie Morgan MBBS [address] [place] [address] [address] [place] [address] Malaise and fatigue (Primary Dx); Low hemoglobin Social History Tobacco Use Types Packs/Day Years Used Date Smoking Tobacco: Never Smokeless Tobacco: Never Alcohol Use Standard Drinks/Week Comments Yes 1 (1 standard drink = 0.6 oz pur e alcohol) Sex and Gender Information Value Date Recorded Sex Assigned at Not on file Gender Identity Male 05/11/2021 22:42 EDT Sexual Orientation Not on file documented as of this encounter Ordered Prescriptions Prescription Sig Dispensed Refills Start Date End Da te cyanocobalamin (VITAMIN B-12) 1,000 mcg tablet Take 1 Tablet by mouth daily. 30 Tablet 4 06/03/2021 documented in this encounter Progress Notes * Carrie Morgan MBBS - 06/03/2021 1600 EDT [facility] Audio Visit I am conducting today's visit by telephone due to the COVID-19 pandemic, and by the recommendationsfrom the [facility] to minimize patient exposure to our medical center. All patients who have routine follow up visits or are not on active cancer treatments will have visits postponed for an appropriate interval (as decided by the physician) or these visits may be offeredby telemedicine or phone consultation. This consultation has been reviewed by appropriate clinical staff and has been deemed appropriate for a phone consultation. The patient consents to a phone visit, is at home/work, and I, their MD, am in a private area. The location of the patient: Home The location of the provider: Office Verbal consent: The concept of ???Telemedicine?? has been described to the patient.? Patient has been informed of the anticipated benefits and possible risks.? Patient understands the information provided regardingtelemedicine, has had the opportunity to ask questions about this information, and all questions have been answered to patient???s satisfaction. Patient consents for the use of telemedicine in his/her medical care and authorizes the transmission of any relevant medical information to providers and their staff involved in patient???s medical or mental health care. I have determined that an audio-only visit is appropriate due to: Patient request Hematologic history: Fatigue: 03/18/2021: Hemoglobin: 13.3, MCV: 90.6, platelet count: 120,000, TSH: 0.72 ?? 04/10/2021: Hemoglobin: 13.6, hematocrit: 42.3, MCV: 92.2, MCH: 29.6, platelet count: 115,000, serum creatinine: 0.9 05/15/2021: Stool occult blood test: Negative, Serum ferritin: 47, Vitamin B12: 338, folic acid: 13.30, TSH: 0.69 REASON FOR VISIT: Telemedicine Phone Call Subjective: I spoke with Reg over phone to discuss test results. He continues to experiencefatigue. ROS: Review of Systems Constitutional: Positive for malaise/fatigue. Negative for fever. See HPI HENT: Negative. Eyes: Negative. Respiratory: Negative. Negative for shortness of breath. Cardiovascular: Negative. Negative for chest pain. Gastrointestinal: Negative. Negative for abdominal pain. Skin: Negative. Neurological: Negative. Psychiatric/Behavioral: Negative. Negative for depression. I have reviewed patient's past medical history, past surgical history, social and family history. Past Medical History: Diagnosis Date ??? Anemia 05/01/2021 ??? Malaise and fatigue 05/01/2021 ??? Sleep disturbance 05/01/2021 ??? Snoring 05/01/2021 No past surgical history on file. Social History Tobacco Use ??? Smoking status: Never Smoker ??? Smokeless tobacco: Never Used Vaping Use ??? Vaping Use: Never used Substance Use Topics ??? Alcohol use: Yes Alcohol/week: 1.0 standard drink Types: 1 Glasses of wine per week ??? Drug use: Not on file Social History Social History Narrative Lives in [place], [place] with and 2 boys. Shanta. No family history on file. I have reviewed allergies No Known Allergies I have reviewed current medications No current outpatient medications on file. No current facility-administered medications for this visit. ECOG PS: 0-1 Objective: There were no vitals taken for this visit. Examination: General: Comfortable, cooperative and in no apparent distress NEURO: Alert and oriented x 3 Pertinent exam findings patient can observe: None Data reviewed with patient: Reviewed and/or ordered lab results tests: Results for orders placed or performed in [...] 12.6 <14.2 % WHITE BLOOD COUNT - CV 5.3 4.0 - 10.4 10e3/ul POCT OCCULT BLOOD SLIDE TEST X 3 Result Value Ref Range Developer Lot Number [id number] Developer Expiration Date 03-09-2022 Card/Slide Lot Number #1 1-19 Card/Slide Expiration Date #1 02-06-2023 Card Slide [...] Blue? #3 Negative Control Clear? #3 Assessment & Plan: 40 y.o. male with no significant past medical history who has chronic fatigue. CBC does not show anemia. Stool occult blood test is negative. Serum ferritin, TSH levels are normal. Folic acid is normal but vitamin B12 is at lower limits of normal. Vitamin B12 deficiency may explain mild fatigue. I advised the patient to take vitamin B12, 1000 mcg daily. He also needs evaluation in sleep clinic torule out obstructive sleep apnea as he snores at night and sleep apnea can also cause fatigue. Follow-up: 6 months Patient initiated phone contact with the office Yes Is an established patient (parent, guardian) Yes E/M provided within previous 7 days for same Assessment No Anticipate E/M service within 24hrs or next available urgent appointment No This visit was conducted by telephone. I spent a total of 25 minutes on the date of this encounter meeting with the patient and reviewing documentation/coordinating care as described in the above note. No procedures were performed at the time of the visit. Orders placed in this visit: No orders of the defined types were placed in this encounter. Requested Prescriptions Signed Prescriptions Disp Refills ??? cyanocobalamin (VITAMIN B-12) 1,000 mcg tablet 30 Tablet 4 Sig: Take 1 Tablet by mouth daily. Carrie Morgan MD Clinical Practice Physician Hematology/ Medical Oncology [facility] Ph no: [phone] CC:Primary Care Provider: Haylee Monge [address] [place] [phone] * Saige Cabrera MA - 06/03/2021 1600 EDT Patient rooming was completed remotely by SAIGE CABRERA MA in compliance with efforts to reduce exposure to COVID19. Patient pharmacy verified: Yes Patient insurance verified: Yes Verbal consent given by patient to continue with telemedicine visit: Yes 06/03/21 15:35 documented in this encounter Plan of Treatment Not on file documented as of this encounter Visit Diagnoses Diagnosis Malaise and fatigue- Primary Other malaise and fatigue Low hemoglobin Anemia, unspecified documented in this encounter Care Teams Fish Seiner Relationship Specialty Start Date End Date Haylee Monge APRN [address] [place] [phone] PCP - General 05/15/21 documented as of this encounter
--- OUTSIDE RECORDS SUMMARY | 2024-05-28 21:09 | XMS_ITS | Encounter Summary ---
Author Organization [facility] Address [address] [place] [id number] Care Team Providers Care Vp Rheumatology Name Role Phone Haylee Monge CHELI Primary Care Provider + Reason for Visit * Reason Comments New Patient Visit Encounter Details Date Type Department Care Team (Late st Contact Info) Description 05/15/2021 14:00 EDT Office Visit [facility] Adult Hematology & Oncology [address] [place] [id number] Carrie Morgan MBBS [address] [place] [address] [address] [place] [address] Low hemoglobin (Primary Dx); Malaise and fatigue Social History Tobacco Use Types Packs/Day Years [...] Sign Reading Time Taken Comments Blood Pressure 130/70 05/15/2021 1407 EDT Pulse 81 05/15/2021 1407 EDT Temperature - - Respiratory Rate - - Oxygen Saturation 99% 05/15/2021 1407 EDT Inhaled Oxygen Concentration - - Weight 85.7 kg (188 lb 14.4 oz) 05/15/2021 1407 EDT Height - - Body Mass Index - - documented in this encounter Progress Notes * Carrie Morgan MBBS - 05/15/2021 1400 EDT HEMATOLOGY CONSULT NOTE REASON FOR REFERRAL: Fatigue HISTORY OF PRESENT ILLNESS: 03/18/2021: Hemoglobin: 13.3, MCV: 90.6, platelet count: 120,000, TSH: 0.72 04/10/2021: Hemoglobin: 13.6, hematocrit: 42.3, MCV: 92.2, MCH: 29.6, platelet count: 115,000, serum creatinine: 0.9 Patient is being referred to be seen in hematology clinic for fatigue. Of note, CBC from today does not show anemia. Patient today mentions that he has been extremely fatigued for the last 10 years.He snores at night. He wakes up tired. He denies blood in stool. He does not have dietary restrictions. He denies weight, appetite changes. PMH PSH Past Medical History: Diagnosis Date ??? Anemia 05/01/2021 ??? Malaise and fatigue 05/01/2021 ??? Sleep disturbance 05/01/2021 ??? Snoring 05/01/2021 No past surgical history on file. CURRENT MEDICATIONS No current outpatient medications on file. No current facility-administered medications for this visit. ALLERGIES No Known Allergies SOCIAL HISTORY FAMILY HISTORY Social History Tobacco Use ??? Smoking status: Never Smoker ??? Smokeless tobacco: Never Used Vaping Use ??? Vaping Use: Never used Substance Use Topics ??? Alcohol use: Yes Alcohol/week: 1.0 standard drink Types: 1 Glasses of wine per week ??? Drug use: Not on file Social History Social History Narrative Lives in [place], [place] with and 2 boys. Shanta. No family history on file. REVIEW OF SYSTEMS: A complete 10 point review of systems was performed and is otherwise negative. OBJECTIVE: Patient Vitals for the past 24 hrs: BP Pulse SpO2 Weight 05/15/21 1407 130/70 81 99 % 85.7 kg (188 lb 14.4 oz) General appearance: Awake, alert, oriented x3, NAD Skin: Skin color, temperature, turgor normal. No rashes or lesions Head: Normocephalic, without obvious abnormality, atraumatic Eyes: conjunctivae/corneas clear Neck: supple, symmetrical, trachea midline Extremities: atraumatic, no edema Neuro: No motor/sensory abnormalities Data Review Results for orders placed or performed in visit on 05/15/21 CBC W/PLT & DIFF,POINT OF CARE - CV Result Value Ref Range ABSOLUTE NEUTROPHIL COUN [...] - [facility] 5.3 4.0 - 10.4 10e3/ul Assessment: 40 y.o. male with no significant past medical history who is being referred for fatigue. CBC does not show anemia. As hemoglobin is towards lower limits of normal, I will order stool occult blood test to rule out GI source of bleeding. To rule out nutritional deficiency, I will order iron studies, B12 and folate levels. I will check TSH level to rule out hypothyroidism as it may cause fatigue. Inaddition, I advised him to be evaluated in sleep clinic to rule out obstructive sleep apnea (patient snores at night and wakes up tired). This may explain fatigue. Plan: -Patient complains of fatigue -CBC does not show anemia -As hemoglobin is towards lower limits of normal, I will order stool occult blood test to rule out GI source of bleeding and also will rule out nutritional deficiency -I will check TSH level to rule out hypothyroidism -I advised the patient to be evaluated in sleep clinic to rule out obstructive sleep apnea Follow-up: 06/01, tele Other Orders Placed This Visit Procedures ??? Complete Blood Count ??? Folate ??? Vitamin B12 ??? Ferritin ??? TSH ? ? CBC W/PLT & DIFF,POINT OF CARE - [facility] ??? POCT Occult Blood Slide Test X 3 Requested Prescriptions No prescriptions requested or ordered in this encounter I spent a total of 45 minutes on the date of this encounter meeting with the patient and reviewing documentation/coordinating care as described in the above note. No procedures were performed at the time of the visit. Carrie Morgan MD Clinical Practice Physician Hematology/ Medical Oncology [facility] Ph no: [phone] CC: Primary Care Provider: Haylee Monge [address] [place] [phone] Referring Provider: Haylee Monge [place], [place] * Brett Suero RN - 05/15/2021 1400 EDT Procedures: - Venipuncture Performed by: BRETT SUERO RN Site Collected: Right Antecubital Space Volume Withdrawn: STT: 8.5ml and Lavender Top: 3.0ml Patient Response:Patient tolerated venipuncture well Number of attempts: Collected on: 05/15/21 15:38 Ordering Provider:Carrie Morgan MD documented in this encounter Miscellaneous Notes * Result Encounter Note - Carrie Morgan MBBS - 05/15/2021 1400 EDT Please let the patient know that stool occult blood test is negative. LATASHA Jerome documented in this encounter Plan of Treatment Not on file documented as of this encounter Procedures Procedure Name Priority Date/Time Associated Diagnosis Comments ZZPOCT OCCULT BLOOD SLIDE TEST X 3 Routine 05/27/2021 Low hemoglobin CBC W/PLT & DIFF,POINT OF CARE - [facility] Routine 05/15/2021 14:33 EDT Low hemoglobin TSH Routine 05/15/2021 14:30 EDT Low hemoglobin FOLATE Routine 05/15/2021 14:30 EDT Low hemoglobin FERRITIN Routine 05/15/2021 14:30 EDT Low hemoglobin VITAMIN B12 Routine 05/15/2021 14:30 EDT Low hemoglobin documented in this encounter Results * POCT OCCULT BLOOD SLIDE TEST X 3 (05/27/2021) Developer Lot Number [id number] [facility] POINT OF CARE Developer Expiration Date 03-09-2022 [facility] POINT OF CARE Card/Slide Lot Number #1 [id number] [facility] POINT OF CARE Card/Slide Expiration Date #1 02-06-2023 [facility] POINT OF CARE Card Slide #1 Collection Date: 05/18/21 [facility] POINT OF CARE Occult Blood Test Result #1 Negative Negative [facility] POINT OF CARE Positive Control Blue? #1 Yes [facility] POINT OF CARE Negative Control Clear? #1 [facility] POINT OF CARE Card/Slide Lot Number #2 [facility] POINT OF CARE Card/Slide Expiration Date #2 [facility] POINT OF CARE Card Slide #2 Collection Date: 05/19/21 [facility] POINT OF CARE Occult Blood Test Result #2 Negative Negative [facility] POINT OF CARE Positive Control Blue? #2 [facility] POINT OF CARE Negative Control Clear? #2 [facility] POINT OF CARE Card/Slide Lot Number #3 [facility] POINT OF CARE Card/Slide Expiration Date #3 [facility] POINT OF CARE Card Slide #3 Collection Date: 05/21/21 [facility] POINT OF CARE Occult Blood Test Result #3 Negative Negative [facility] POINT OF CARE Positive Control Blue? #3 [facility] POINT OF CARE Negative Control Clear? #3 [facility] POINT OF CARE Feces SPECIMEN FROM RECTUM / Unknown 05/27/2021 Carrie Meryl PAGAN POINT OF CARE TEST ORDERABLES [facility] POINT [facility] * CBC W/PLT & DIFF,POINT OF CARE - [facility] (05/15/2021 14:33 EDT) ABSOLUTE NEUTROPHIL COUN - [facility] 3.1 2.2 - 8.85 10e3/uL 05/15/2021 14:37 [facility] BASO # - [facility] 0.02 0.01 - 0.11 10e/uL 05/15/2021 14:37 [facility] BASO % - [facility] 0 0 - 2 % 05/15/2021 14:37 [facility] EOS # - [facility] 0.09 0.03 - 0.61 10e3/uL 05/15/2021 14:37 [facility] EOS % - [facility] 2 0 - 5 % 05/15/2021 14:37 [facility] GRAN % - [facility] 58.4 40 - 80 % 05/15/2021 14:37 [facility] HEMATOCRIT - [facility] 40.1 39.5 - 50.2 % 05/15/2021 14:37 [facility] HEMOGLOBIN - [facility] 13.8 13.8 - 17.3 g/dl 05/15/2021 14:37 [facility] LYMPH # - [facility] 1.6 1.09 - 3.3 10e3/ul 05/15/2021 14:37 [facility] LYMPH% - [facility] 29.8 20 - 40 % 05/15/2021 14:37 [facility] MEAN CORPUSCULAR HGB - [facility] 30.7 27.6 - 33.0 pg 05/15/2021 14:37 [facility] MEAN CORPUSCULAR HGB CONC - [facility] 34.4 32.8 - 36.4 g/dl 05/15/2021 14:37 EDT [facility] MEAN CELL VOLUME - [facility] 89.3 81 - 95 fl 05/15/2021 14:37 [facility] MONO # - [facility] 0.5 0.1 - 0.8 10e3/uL 05/15/2021 14:37 T [facility] MONO% - [facility] 9.7 0 - 12 % 05/15/2021 14:37 [facility] PLATELET COUNT 142 141 - 377 10e3/ul 05/15/2021 14:37 [facility] RED BLOOD COUNT - [facility] 4.49 4.36 - 5.78 10e6/ul 05/15/2021 14:37 [facility] RED CELL DISTRI WIDTH - [facility] 12.6 <14.2 % 05/15/2021 14:37 [facility] WHITE BLOOD COUNT - [facility] 5.3 4.0 - 10.4 10e3/ul 05/15/2021 14:37 [facility] 05/15/2021 14:3 3 EDT 05/15/2021 14:33 EDT Carrie PAGAN CHEMISTRY & BLOOD GAS ORDERABLES [facility] [address] [place] [address] * TSH (05/15/2021 14:30 EDT) Pathologist [facility] THYROID STIM HORMONE - [facility] 0.69 0.46 - 4.68 uIU/ml 05/15/2021 18:25 EDT [facility] Comment: The results of this assay can be falsely lowered due to the consumption of Biotin. Blood VENOUS BLOOD / Unknown 05/15/2021 14:30 EDT 05/15/2021 16:50 EDT Carrie PAGAN CHEMISTRY & BLOOD GAS ORDERABLES Performing Organization Address [facility] Co de Phone Number [facility] [address] [place] [address] * FERRITIN (05/15/2021 14:30 EDT) [facility] FERRITIN [facility] 47 17.9 - 464.0 ng/mL 05/15/2021 17:55 EDT [facility] Comment: The results of this assay can be falsely lowered due to the consumption of Biotin. Blood VENOUS BLOOD / Unknown 05/15/2021 14:30 EDT 05/15/2021 16:50 EDT Carrie PAGAN CHEMISTRY & BLOOD GAS ORDERABLES Performing Organization Address [facility] de Phone Number [facility] [address] [place] [address] * VITAMIN B12 (05/15/2021 14:30 EDT) [facility] VITAMIN B12 [facility] 338 239 - 931 pg/mL 05/15/2021 18:25 EDT [facility] Comment: The results of this assay can be falsely elevated due to the consumption of Biotin. Blood VENOUS BLOOD / Unknown 05/15/2021 14:30 EDT 05/15/2021 16:50 EDT Carrie PAGAN CHEMISTRY & BLOOD GAS ORDERABLES Performing Organization Address [facility] de Phone Number [facility] [address] [place] [address] * FOLATE (05/15/2021 14:30 EDT) [facility] FOLIC ACID [facility] 13.30 2.76- >20.0 ng/mL 05/15/2021 18:25 EDT [facility] Comment: The results of this assay can be falsely elevated due to the consumption of Biotin. Blood VENOUS BLOOD / Unknown 05/15/2021 14:30 EDT 05/15/2021 16:50 EDT Carrie PAGAN CHEMISTRY & BLOOD GAS ORDERABLES [facility] [address] [place] [address] documented in this encounter Visit Diagnoses Diagnosis Low hemoglobin- Primary Anemia, unspecified Malaise and fatigue Other malaise and fatigue documented in this encounter Care Teams Vp Rheumatology Relationship Specialty Start Date End Date Haylee Monge, [employer] [address] [place] [address] PCP - General 05/15/21 documented as of this encounter
[2024-05-29 19:41] LABS: HIV-1/2 Ag & Ab Screen Negative (Negative)
[2024-05-29 19:44] LABS: Hepatitis C Ab w Rflx HCV PCR Negative (Negative)
[2024-05-30 08:43] LABS: Syphilis Serology (RPR) Negative (Negative)
[2024-05-30 13:06] LABS: Chlamydia Result Negative (Negative); GC Result Negative (Negative)
== END 2024-05-28 21:05 | disposition home or self-care (01) ==
LOC: NCHCN 21:04
PROVIDERS: PCP Registered Nurse; Visit Provider Family Medicine
DX: Z11.3 Encounter for screening for infections with a predominantly sexual mode of transmission (principal)
CPT/HCPCS: 86803; 87389; 87491; 87591; 86592